=== PATIENT | female | born 2000 | race Two or more races ===

== ENCOUNTER 2024-09-20 17:14 | Emergency (ER) | payer MEDICAID, OTHER ==
[~2024-09-20] VITALS: Ht 170.2 cm; Wt 71.1 kg
--- NOTE | 2024-09-20 18:08 | ED.PDOC ---
History of Present Illness HPI Comments 24-year-old female presents with a chief complaint of pelvic pain x 1 week with associated vaginal bleeding and current . Patient states that she is currently about 3 weeks , . Patient mentions that her pain is localized to her pelvic region, radiates to her back, describes as cramping, and rates her current pain at 7/10. Patient denies any vaginal bleeding today, but did bleed a little bit yesterday. Patient denies any other symptoms or modifying factors present at this time. Chief Complaint: Pelvic Pain Time Seen by MD: 18:02 Reviewed Notes: Nurses Notes, Medications, Allergies Allergies: Coded Allergies: NO KNOWN ALLERGIES (Unverified , 09/20/24) Information Source: Patient Mode of Arrival: Ambulatory Severity: Moderate Timing: Days Duration: Since onset Prehospital treatment: None Past Medical History PAST MEDICAL HISTORY: Denies Surgical History: Denies all surgeries RADIO MAINTAINER History: No Pertinent RADIO MAINTAINER History Family History Family History: Reviewed,noncontributory to illness Social History Smoker: Non-Smoker Alcohol: Denies ETOH Use Drugs: Denies Drug Use Lives In: Home Constitutional: denies: chills, diaphoresis, fatigue, fever, malaise, sweats, weakness, others EENTM: denies: blurred vision, double vision, ear bleeding, ear discharge, ear drainage, ear pain, ear ringing, eye pain, eye redness, hearing loss, mouth stephon n, mouth swelling, nasal discharge, nose bleeding, nose congestion, nose pain, photophobia, tearing, throat pain, throat swelling, voice changes, others Respiratory: denies: cough, hemoptysis, orthopnea, SOB at rest, shortness of breath, SOB with excertion, stridor, wheezing, others Cardiovascular: denies: chest pain, dizzy spells, diaphoresis, Dyspnea on exertion, edema, irregular heart beat, left arm pain, lightheadedness, palpitations, PND, syncope, others Gastrointestinal: reports: abdominal pain; denies: abdomen distended, blood streaked bowels, constipated, diarrhea, dysphagia, difficulty swallowing, hematemesis, melena, nausea, poor appetite, poor fluid intake, rectal bleeding, rectal pain, vomiting, others Genitourinary: reports: abnormal vagina bleeding, ; denies: burning, dyspareunia, dysuria, flank pain, frequency, hematuria, incontinence, pain, vagina discharge, urgency, others Neurological: denies: dizziness, fainting, headache, left sided numbness, left sided weakness, numbness, paresthesia, pre-existing deficit, right sided numbness, right sided weakness, seizure, speech problems, tingling, tremors, weakness, others Musculoskeletal: denies: back pain, gout, joint pain, joint swelling, muscle pain, muscle stiffness, neck pain, others Integumetry: denies: bruises, change in color, change in hair/nails, dryness, laceration, lesions, lumps, rash, wounds, others Allergic/Immunocompromised: denies: Difficulty Healing, Frequent Infections, Hives, Itching, others Hematologic/Lymphatic: denies: anemia, blood clots, easy bleeding, easy bruising, swollen glands, others Endocrine: denies: excessive hunger, excessive sweating, excessive thirst, excessive urination, flushing, intolerance to cold, intolerance to heat, unexplained weight gain, unexplained weight loss, others Psychiatric: denies: anxiety, bipolar disorder, depression, hopeless, panic disorder, schizophrenia, sleepless, suicidal, others All Other Systems: Reviewed and Negative Physical Exam General Appearance: No Apparent Distress HEENT: Normal ENT Inspection, Pharynx Normal, TMs Normal Neck: Full Range of Motion, Non-Tender, Normal, Normal Inspection Respiratory: Chest Non-Tender, Lungs Clear, No Accessory Muscle Use, No Respiratory Distress, Normal Breath Sounds Cardiovascular: No Edema, No JVD, No Murmur, No Gallop, Normal Peripheral Pulses, Regular Rate/Rhythm Breast Exam: Deferred Gastrointestinal: No Organomegaly, No Pulsatile Mass, Normal Bowel Sounds, Soft, Suprapubic, Tenderness Genitalia: Deferred Pelvic: Deferred Rectal: Deferred Extremities: No calf tenderness, Normal capillary refill, Normal inspection, Normal range of motion, Non-tender, No pedal edema Musculoskeletal : Apperance: Normal Neurologic: Alert, labor specialist II-XII nml as Tested, No Motor Deficits, Normal Affect, Normal Mood, No Sensory Deficits Cerebellar Function: Normal Reflexes: Normal Skin: Dry, Normal Color, Warm Lymphatic: No Adenopathy Was a procedure done? Was a procedure done?: No Differential Dx Considerations may include: Threatened , UTI, generalized weakness X-Ray, Labs, Meds, VS Vital Signs Date Time Temp Pulse Resp B/P (MAP) Pulse Ox O2 Delivery O2 Flow Rate FiO2 09/20/24 19:44 99.2 70 12 113/66 (82) 100 99.2 09/20/24 17:29 98.3 64 18 115/74 (88) 98 98.3 Lab Test 09/20/24 18:21 09/20/24 17:47 Range/Units Beta HCG, Quantitative 9314.6 H 1.5-4.2 mIU/mL Urine Color Colorless Yellow Urine Clarity Clear Clear Urine pH 7.0 5.0-9.0 Urine Specific [place] 1.004 1.001-1.035 Urine Protein Negative Negative Urine Ketones Negative Negative Urine Blood 2+ H Negative /uL Urine Nitrite Negative Negative Urine Bilirubin Negative Negative Urine Urobilinogen Normal Negative mg/dL Urine Leukocyte Esterase Negative Negative /uL Urine RBC 5 0 - 4 /hpf Urine Microscopic WBC 1 0-5 /HPF Urine Squamous Epithelial Cells Few <5 /hpf Urine Bacteria Few H None Seen /hpf Urine Glucose Normal Normal mg/dL Urine Test Positive Negative This is a urine test is negative for any infection The patient is being discharged The ultrasound of the pelvis shows: IMPRESSION: Single living intrauterine with an estimated gestational age of 5 weeks, 4 days, corresponding to an estimated date of delivery of 05/19/2025. The patient understands and agrees with the management. Images Reviewed?: Images reviewed and evaluated by me Time of 1ST Reevaluation: 18:32 Reevaluation 1ST: Improved Patient Education/Counseling: Diagnosis, Treatment, Prognosis, Need For Follow Up Family Education/Counseling: No Family Present Departure 1 Departure Time of Disposition: 21:03 Impression: Primary Impression: Threatened Disposition: 01 HOME / SELF CARE / HOMELESS Condition: Fair Discharged With: Self Critical Care Note Critical Care Time?: No Stability Stability form required: No Heart Score Heart Score: Heart Score Response (Comments) Value History N/A 0 EKG N/A 0 Age N/A 0 Risk Factors N/A 0 Troponin N/A 0 Total 0 I personally scribed for ANNY CADET MD ([email or web address]) on 09/20/24 at 18:08. Electronically submitted by Fantasma Mark ([email or web address]). ANNY CADET MD Sep 20, 2024 18:08
[2024-09-20 18:24] LABS: Urine Bacteria FEW /hpf (None Seen); Urine Blood 2+ /uL (Negative); Urine Clarity Clear (Clear); Urine Color Colorless (Yellow); Urine Protein, UAD Negative (Negative); Urine Specific Gravity 1.004 (1.001-1.035); Urine Squamous Epithelial Cell FEW /hpf (<5); Urine Urobilinogen Normal (Negative); Urine WBC 1 /HPF (0-5)
--- NOTE | 2024-09-20 20:50 | DVH ---
OBSTETRIC ULTRASOUND PRIOR TO 14 WEEKS CLINICAL INDICATION: 1st trimester TECHNIQUE: Multiple grayscale ultrasound images were obtained of the pelvis via transabdominal and tr ansvaginal approach for obstetric evaluation. Limited color Doppler and spectral Doppler acquisitions were also obtained. COMPARISON: None FINDINGS: Uterus: 8.6 x 6.3 x 5.4 cm. There is a single intrauterine gestational sac is visualized measuring 1. 2 cm corresponding to a gestational age of 5 weeks 2 days. A pole is visualized measuring 0.22 cm compatible with an estimated gestational age of 5 weeks, 5 days. cardiac activity is presen t with heart rate of 98 beats per minute. A normal yolk sac is present. Right adnexa: right ovary 3.5 x 3.1 x 2.2 cm. Normal arterial blood flow in the ovary. No right adne xal mass seen. There is a corpus luteum of the right ovary measuring 2 cm. Left adnexa: left ovary 2.7 x 1.9 x 2.3 cm. Normal arterial blood flow in the ovary. No left adnexal mass seen. Other: None IMPRESSION: Single living intrauterine with an estimated gestational age of 5 weeks, 4 days, correspo nding to an estimated date of delivery of 05/19/2025.
[2024-09-20] MEDS: ACETAMINOPHEN 325 MG TAB PO ONE (21:45)
[2024-09-20 21:46] VITALS: BP 121/78; PULSE 68; RESP 16; TEMP 98.1; O2SAT 99
== END 2024-09-20 21:52 | disposition home or self-care (01) ==
LOC: ER 17:14
DX: O20.0 Threatened abortion (principal); O26.891 Other specified pregnancy related conditions, first trimester; Z3A.01 Less than 8 weeks gestation of pregnancy
CPT/HCPCS: 36415; 76801; 76817; 81001; 81025; 84702